=== PATIENT | male | born 1960 | race Caucasian/White ===

== ENCOUNTER 2024-01-05 10:58 | Day surgery (SDC) | payer OTHER ==
[2024-01-05] VITALS (17 sets, daily range): BP systolic 125–164; BP diastolic 63–99
[~2024-01-05] VITALS: Ht 177.8 cm; Wt 96.8 kg
[~2024-01-05 10:58] MED LIST: Acetaminophen 500 MG Tab PO SCH; CeFAZolin Sodium 2,000 MG in NS 100 ML IV SCH; Chlorhexidine Mouth Care 15 ML UDC MT SCH; Lactated Ringer's 1,000 ML IV SCH; OxyCODONE HCL 10 MG TABCR PO SCH; Ropivacaine 0.5% HCl/Pf 123.125 MG,EPINEPHrine HCL 0.25 MG,Ketorolac Tromethamine 15 MG... INFIL SCH; Tranexamic Acid 100 ML IV SCH; Vancomycin HCL 1,000 MG in NS 250 ML IV SCH
--- NOTE | 2024-01-05 12:34 | NUR ---
GAVE REPORT TO SARA MARTINEZ TO RESUME CARE.
--- NOTE | 2024-01-05 12:55 | NUR ---
History, Chart, Medications and Allergies reviewed before start of procedure.Pre-Op teaching done. Pt verbalizes understanding. Personal belongings sent home with . Clothing was followed patient through surgery.
[2024-01-05] MEDS ORDERED: FLU VACC TS2024-25(6MOS UP)/PF 45 MCG/0.5 ML SYRINGE IM ONE (13:10)
[2024-01-05] MEDS ORDERED: Magnesium Hydroxide Conc 10 ML UDC PO PRN (13:10)
[2024-01-05] MEDS ORDERED: Lactated Ringer's 1,000 ML IV SCH (13:10)
[2024-01-05] MEDS ORDERED: HYDROmorphone HCl/Pf 1MG SYR IV PRN (13:10)
[2024-01-05] MEDS ORDERED: Promethazine HCl 25 MG Tab PO PRN (13:15)
[2024-01-05] MEDS ORDERED: OxyCODONE HCL 5 MG TAB PO PRN ×2 (13:15)
[2024-01-05] MEDS ORDERED: Metoclopramide HCl 5MG / ML 2ML Vial IV PRN (13:15)
[2024-01-05] MEDS ORDERED: Ondansetron HCl 2 MG / ML 2ML Vial IV PRN (13:15)
[2024-01-05] MEDS ORDERED: Bisacodyl 10 MG Supp PR PRN (13:20)
[2024-01-05] MEDS ORDERED: DiphenhydrAMINE HCL 25 MG Cap PO PRN (13:20)
[2024-01-05] MEDS ORDERED: Ondansetron HCl 2 MG / ML 2ML Vial ONE (13:51)
[2024-01-05] MEDS ORDERED: Dexamethasone Sod Phos 10 MG/ML 1ML VIAL ONE (13:51)
[2024-01-05] MEDS ORDERED: Acetaminophen 500 MG Tab PO SCH (16:00)
[2024-01-05] MEDS ORDERED: Ketorolac Tromethamine 30mg Vial ONE (17:09)
[2024-01-05] MEDS ORDERED: Ketorolac Tromethamine 15mg Vial IV SCH (18:00)
[2024-01-05] MEDS ORDERED: Docusate Sodium 100 MG Cap PO SCH (21:00)
[2024-01-05] MEDS ORDERED: CeFAZolin Sodium 2,000 MG in NS 100 ML IV SCH (22:00)
[2024-01-06] MEDS ORDERED: Vancomycin HCL 1,000 MG in NS 250 ML IV SCH
[2024-01-06 04:31] VITALS: BP 121/75
[2024-01-06 04:46] LABS: BASOPHILS ABSOLUTE AUTO 0.01 K/mm3 (0.00-0.23); BASOPHILS PERCENT AUTO 0 % (0-2); EOSINOPHILS PERCENT AUTO 0 % (0-6); Hematocrit 40.5 % (37.0-53.0); Hemoglobin 14.5 g/dL (13.5-17.5); IMMATURE GRAN ABSOLUTE AUTO 0.04 K/mm3 (0.00-0.10); IMMATURE GRAN PERCENT AUTO 0 % (0-1); LYMPHOCYTES ABSOLUTE AUTO 0.55 K/mm3 (0.84-5.20); LYMPHOCYTES PERCENT AUTO 4 % (21-46); MONOCYTES ABSOLUTE AUTO 0.57 K/mm3 (0.16-1.47); MONOCYTES PERCENT AUTO 4 % (4-13); Mean Corpuscular HGB 33.8 pg (26.0-34.0); Mean Corpuscular HGB Conc 35.8 g/dL (31.5-36.5); Mean Corpuscular Volume 94 fL (80-100); NEUTROPHILS ABSOLUTE AUTO 11.81 K/mm3 (1.96-9.15); NEUTROPHILS PERCENT AUTO 91 % (41-73); Platelet Count 155 K/mm3 (150-400); RDW Coefficient Variation 11.6 % (11.7-14.2); RDW Standard Deviation 39.7 fL (35.1-46.3); Red Blood Cell Count 4.29 M/mm3 (4.30-5.90); White Blood Cell Count 12.98 K/mm3 (4.00-11.30)
[2024-01-06 05:13] LABS: Bun/Creatinine Ratio 27.6 (12.0-20.0); Calcium, Blood 8.4 mg/dL (8.5-10.1); Creatinine, Blood 0.98 mg/dL (0.60-1.20); Magnesium, Blood 2.1 mg/dL (1.6-2.4); Potassium, Blood 4.1 mmol/L (3.5-5.5)
--- NOTE | 2024-01-06 05:42 | NUR ---
SHIFT SUMMARY POD 1 L TKA PT ABLE TO REST DURING THE NIGHT. PAIN MANAGED PER EMAR. TOLERATING PO INTAKE, VOIDING. PT HAS BEEN OOB W/ 1P ASST FWW AND GB. DRESSING TO L KNEE IS C/D/I. DENIES N/T IN EXT'S. UP IN CHAIR THIS AM. PLAN TO WORK WITH THERAPY THIS AM AND THEN D/C HOME. VSS. NO OTHER CONCERNS AT THIS TIME, CALL LIGHT WITHIN REACH
[2024-01-06] MEDS ORDERED: OXAYDO5 M1 PO (07:52)
[2024-01-06] MEDS ORDERED: ASPI81CH PO (07:52)
[2024-01-06] MEDS ORDERED: SULTRIDS PO (07:53)
[2024-01-06] MEDS ORDERED: PROM25 PO (07:53)
[2024-01-06 08:03] VITALS: BP 129/81
[2024-01-06] MEDS ORDERED: Aspirin 81 MG Chew PO SCH (09:00)
[2024-01-06] MEDS ORDERED: Trimethoprim/Sulfamethoxazole DS Tab PO SCH (09:00)
--- NOTE | 2024-01-06 11:36 | NUR ---
DISCHARGE PT PROVIDED WITH WRITTEN AND VERBAL DISCHARGE INSTRUCTIONS, HE REPORTED UNDERSTANDING. PT STATED PRESCRIPTION IS AT DR. MCMAHON'S OFFIC AND HE WILL PICK IT UP ON THE WAY HOME. CLEAN DRESSINGS PROVIDED. PT ASSISTED OUT IN W/C AT APPROXIMATELY 0940.
== END 2024-01-06 09:44 | disposition home or self-care (01) ==
LOC: ORSCMMR 10:58 → ORD 14:15 → SURS 17:05 → ORSCMMR 01-06 09:44
PROVIDERS: Orthopaedic Surgery
PROC: 0SRD0JA Replacement of Left Knee Joint with Synthetic Substitute, Uncemented, Open Approach (ICD-10-PCS; principal; 2024-01-05 14:15)
DX: M17.12 Unilateral primary osteoarthritis, left knee (principal); Z87.891 Personal history of nicotine dependence; J44.9 Chronic obstructive pulmonary disease, unspecified
CPT/HCPCS: 36415; 73560-LT; 80048; 83735; 85025; 97110; 97116; 97161; A9270; C1713; C1776; J0171; J0690; J0735; J1100; J1885; J2405; J2795; J3370; J7050; J7120

== ENCOUNTER 2024-07-02 08:14 | Emergency (ER) | payer OTHER ==
[~2024-07-02] VITALS: Ht 177.8 cm; Wt 99.8 kg
[~2024-07-02 08:14] MED LIST changes: +ASPI81CH PO; -Acetaminophen 500 MG Tab PO SCH; -CeFAZolin Sodium 2,000 MG in NS 100 ML IV SCH; -Chlorhexidine Mouth Care 15 ML UDC MT SCH; -Lactated Ringer's 1,000 ML IV SCH; +OXAYDO5 M1 PO; -OxyCODONE HCL 10 MG TABCR PO SCH; +PROM25 PO; -Ropivacaine 0.5% HCl/Pf 123.125 MG,EPINEPHrine HCL 0.25 MG,Ketorolac Tromethamine 15 MG... INFIL SCH; +SULTRIDS PO; -Tranexamic Acid 100 ML IV SCH; -Vancomycin HCL 1,000 MG in NS 250 ML IV SCH
[2024-07-02 09:26] LABS: Source, Urine Clean Catch
[2024-07-02 09:35] LABS: Appearance, Urine Clear (Clear); Bilirubin, Urine Neg (Neg); Blood, Urine 3+ (Neg); Color, Urine Amber (P-Yellow); Glucose Qualitative, Urine Neg (Neg); Ketones, Urine Neg (Neg); Leukocyte Esterase, Urine 2+ (Neg); Nitrite, Urine Neg (Neg); Protein, Urine 2+ (Neg); Urobilinogen, Urine 1+ (Normal)
[2024-07-02 09:40] LABS: Squamous Epithelial Cells Rare /hpf (Few)
[2024-07-02 09:41] LABS: Bacteria Many /hpf; Mucus Heavy (0-Heavy); Red Blood Cells, Urine 25-50 /hpf (0-2); White Blood Cells, Urine 25-50 /hpf (0-5)
[2024-07-02] MEDS ORDERED: Cefpodoxime Proxetil 200 MG Tab PO ONE (10:05)
[2024-07-02] MEDS ORDERED: CEFP200 PO (10:06)
== END 2024-07-02 10:15 | disposition home or self-care (01) ==
LOC: ER 08:14
PROVIDERS: Student in an Organized Health Care Education/Training Program
DX: N39.0 Urinary tract infection, site not specified (principal); Z79.82 Long term (current) use of aspirin; Z79.2 Long term (current) use of antibiotics; Z87.891 Personal history of nicotine dependence
CPT/HCPCS: 51798; 81001; 99283; A9270